=== PATIENT | male | born 1975 | race Caucasian/White ===

== ENCOUNTER 2019-12-16 18:20 | Emergency (ER) | payer MEDICARE, SELFPAY ==
[2019-12-16 18:24] VITALS: BP 132/84; PULSE 96; RESP 16; TEMP 35.8; O2SAT 98; BMI 36.6
--- NOTE | 2019-12-16 19:19 | ED.VIS.GEN ---
History of Present Illness Chief Complaint: Lower Extremity Injury Detail of Chief Complaint: Bilateral foot pain Informant: Patient Onset: Month(s) Context: Gradual Onset Timing: Waxes and wanes Current Severity: Moderate Maximum Severity: Moderate Narrative: Patient presents with bilateral foot pain which he described as a burning sensation. Symptoms been ongoing since last fall. When asked why he came today he states that [facility] told him he should finally get a doctor and get this taken care of. He does not have a primary care physician. He reportedly did have a fall earlier today and has a few abrasions on his left lower pinedo. He also complains of difficulty sleeping for the past couple of months. He reports waking up every 2 or 3 hours. He does not have chest pain or shortness of breath when he wakes up. He does not know what wakes him up. Past Medical History - Allergies and Home Meds Allergies/Adverse Reactions: Allergies No Known Allergies Allergy (Verified 12/16/19 18:24) Primary Care Physician: Care Physician,No Primary [Primary Care Provider] - Lives: Homeless Review of Systems General: Denies: Chills, Fever Eyes: Denies: Visual changes - bilaterally ENT: Denies: Bilateral ear pain Cardiovascular: Denies: Chest pain Respiratory: Denies: Dyspnea, Cough Gastrointestinal: Denies: Abdominal pain, Vomiting, Diarrhea Musculoskeletal: Reports: Extremity Pain Skin: Reports: Abrasions Neurological: Denies: Headache Hematologic: Denies: Easy bruising Allergy: Denies: Uticaria Physical Exam Vital Signs/Narrative: Vital Signs Temp Pulse Resp BP Pulse Ox 12/16/19 18:24 96.5 F L 96 16 132/84 H 98 Inital Vital Signs reviewed: Yes General: Well nourished, Well developed Head: Normocephalic ENT: Moist mucous membranes Neck: Supple Cardiovascular: Regular rate, Regular rhythm Respiratory: No distress, CTA bilaterally Abdomen: Soft, Nontender Extremities: - - Mild tenderness to the bilateral feet. Mild erythema. No open wounds are noted. Strong pulses are noted. Skin: - - Superficial abrasions noted to the shins with formed scabs. No sign of secondary infection. Neurological: Alert, Oriented x3 Psychological: Normal affect Diagnostic/Tx/Re-eval - Medical Decision Making Orders are placed for nursing staff to soak the patient's feet. Patient has been up ambulating in the hallways. Due to a very busy ER was unable to get back to reevaluate him. His primary issue at this point is needing to establish a PCP. He is given a pamphlet for the area of primary care physicians prior to him eloping from the emergency room. ED Disposition - Plan for ED Patient: Disposition: Home or Assisted Living Diagnosis: Bilateral foot pain Referrals: Care Physician,No Primary [Primary Care Provider] -
[2019-12-16] MEDS: Naproxen 500 MG Tablet PO (19:23)
--- NOTE | 2019-12-16 21:17 | ED.RN ---
PATIENT ASKING WHEN DR. MEDLEY WOULD RETURN INTO ROOM. PATIENT STATES HE FEELS BETTER NOW THAT HE WASHED HIS FEET. RN EXPLAINED DR. MEDLEY WOULD BE IN SHORTLY. PATIENT CONCERNED ABOUT TRANSPORTATION. RN OFFERED PHONE TO BE USED TO CALL FOR [facility]. PT STATES HE HAS NO ONE TO CALL. PATIENT ALSO STATES THE [employer] HAS HIS DEBIT CARD AND CAN'T PAY FOR A TAXI. PATIENT BECAME FRUSTRATED WITH ANSWERS AND WALKED OUT. DR MEDLEY NOTIFIED AT THIS TIME.
== END 2019-12-16 21:19 | disposition home or self-care (01) ==
PROVIDERS: Emergency Provider Emergency Medicine
DX: M79.671 Pain in right foot (principal); M79.672 Pain in left foot; Z59.0 Homelessness
CPT/HCPCS: 99284

== ENCOUNTER 2019-12-17 01:14 | Emergency (ER) | payer MEDICARE, OTHER, SELFPAY ==
[2019-12-16 18:24] VITALS: BMI 36.6
[2019-12-17 01:15] VITALS: BP 122/83; PULSE 87; RESP 18; TEMP 36.7; O2SAT 99; BMI 26.4
--- NOTE | 2019-12-17 01:27 | ED.DCSUM_ITS ---
History of Present Illness Chief Complaint: Shortness of Breath Informant: Patient Narrative: Patient stated he that he is homeless and was recently kicked out of [facility]. He was seen in the emergency department earlier this evening for foot soreness. He has been living on the streets. His foot feet were cleaned up and then he eloped. There is no infection. Tonight he comes back and stated sometimes he feels short of breath. Has had no cough fevers or chills. He also stated he has an abrasion to his left little finger and wanted that checked out. Patient also stated he urinates a lot and does not drink much water and is concerned he might be diabetic. He denies any chronic medical problems. Current severity is mild. No home treatment. Past Medical History - Allergies and Home Meds Allergies/Adverse Reactions: Allergies No Known Allergies Allergy (Verified 12/17/19 01:17) Primary Care Physician: Care Physician,No Primary [Primary Care Provider] - Prior records reviewed: Yes Past Medical History: None Surgical History: noncontributory Lives: Homeless Smoking Status: Current every day smoker Alcohol: None Drugs: None Review of Systems General: Denies: Chills, Fever, Sweats Eyes: Denies: Visual changes - bilaterally, Diplopia ENT: Denies: Rhinorrhea, Sore throat Cardiovascular: Denies: Chest pain, Palpitations Respiratory: Reports: Dyspnea. Denies: Cough, Dyspnea on exertion Gastrointestinal: Denies: Abdominal pain, Nausea, Vomiting, Diarrhea, Melena, Hematochezia Genitourinary: Denies: Dysuria, Hematuria, Frequency Musculoskeletal: Denies: Back pain, Extremity Pain Skin: Denies: Rash, Wounds Neurological: Denies: Headache, Weakness, Numbness Endocrine: Reports: Polyuria Physical Exam Vital Signs/Narrative: Vital Signs Temp Pulse Resp BP Pulse Ox 12/17/19 01:15 98.0 F 87 18 122/83 H 99 General: Well nourished, Well developed, No Acute Distress Head: Normocephalic, Atraumatic Eyes: Perrl, EOMI ENT: Moist mucous membranes, No rhinorrhea Neck: Supple, Nontender Cardiovascular: Regular rate, Regular rhythm, No murmurs Respiratory: No distress, CTA bilaterally, Chest nontender Abdomen: Soft, Nontender, Nondistended, Normal bowel sounds Back: Nontender, Normal Inspection Extremities: Nontender, No edema Skin: Normal color, No rash, - - Abrasion to left little finger 4 x 4 mm Neurological: Alert, Oriented x3, Cranial nerves II-XII grossly intact, Normal Strength, Normal Sensation Psychological: Normal affect, Normal Mood Diagnostic/Tx/Re-eval - Medical Decision Making Patient has a small abrasion his finger with no infection. Bilateral foot exam shows no abnormalities. Lungs are clear to auscultation. Heart is regular rate and rhythm. Blood sugar obtained. Blood sugar 77. Patient was reassured and will be discharged to follow-up as an outpatient. I do not feel he needs lab work or imaging. The patient does not appear short of breath. I feel that the patient may be using symptoms to coming to the emergency department to warm up. However while here he is very argumentative with the staff including the nurses. I do not feel he needs to stay overnight ED Disposition - Plan for ED Patient: Disposition: Home or Assisted Living Diagnosis: Dyspnea, Finger abrasion Instructions: Abrasion Referrals: Karin Martinez [NON-STAFF] -
[2019-12-17 01:36] LABS: Bedside Glucose 77 mg/dL (70-110)
--- NOTE | 2019-12-17 01:46 | ED.RN ---
PATIENT GIVEN A SNACK AND A SODA, AND BATH WIPES WERE GIVEN SO HE COULD CLEANSE HIS FEET AND OTHER PARTS OF HIS BODY. I INSTRUCTED HIM TO WASH HIS HANDS WITH SOAP AND WATER AND APPLY A BANDAID TO HIS FINGER WOUND ALONG WITH INSTRUCTIONS TO KEEP HIS HANDS CLEAN. I ATTEMPTED TO CALL HIS EMERGENCY CONTACT AND I GOT A VOICE MAIL. HE REQUESTED A PHONE TO CALL [employer] THAT TOOK HIM TO THE LONG TERM ORIGINALLY AND THEY SAID THAT THEY WOULD NOT BRING HIM BACK TO HIS TRAILER. HE THEN REQUESTED TO SPEAK TO A [employer], AND HARJIT WAS IN THE DEPARTMENT SO SHE WENT BACK TO TALK TO HIM.
== END 2019-12-17 02:01 | disposition home or self-care (01) ==
PROVIDERS: Emergency Provider Emergency Medicine
DX: R06.00 Dyspnea, unspecified (principal); S60.417A Abrasion of left little finger, initial encounter; R35.8 Other polyuria; X58.XXXA Exposure to other specified factors, initial encounter; Y93.9 Activity, unspecified; Y92.9 Unspecified place or not applicable; Z59.0 Homelessness; F17.200 Nicotine dependence, unspecified, uncomplicated
CPT/HCPCS: 82962; 99284